=== PATIENT | male | born 1965 | race Caucasian/White ===

== ENCOUNTER 2024-10-13 11:35 | Outpatient (CLI) | payer BC, SELFPAY ==
--- OUTSIDE RECORDS SUMMARY | 2024-10-13 13:08 | XMS_ITS | Encounter Summary ---
Author Organization [facility] Address [address] [facility] [place] [address] Phone Care Team Providers Care Racing Driver Name Role Phone Rissa Clark MD Primary Care Provider Nuha Marroquin APRN, HOT METAL CHARGER Unavailable Reason for Visit * Reason Comments Medication Refill Encounter Details Date Type Department Care Team (Late st Contact Info) Description 04/29/2024 Refill [facility] - Family Medicine - Normal [address] [facility] [address] [place], [place] [id number] Rissa Clark MD [address] [facility] [address] [place] [address] Medication Refill Social History Tobacco Use Types Packs/Day Years Used Date Smoking Tobacco: Never Smokeless Tobacco: Never Alcohol Use Standard Drinks/Week Comments Yes 2 (1 standard drink = 0.6 oz pur e alcohol) AUDIT-C Answer Date Recorded Frequency of Alcohol Consumption 2-3 times a wee k 11/25/2018 Average Number of Drinks 1 or 2 019 Frequency of Binge Drinking Not on file 11/05 PHQ-2 Answer Date Recorded Total Score - Questions 1-9 0 10/0 10/2020 Education Answer Date Recorded What is the highest level of school you have completed or the highest degree you have received? Bachelor's degree (e.g., BA, AB, BS) 02/05/2020 Sexually Active Control Partners Comments Not Currently Surgical Female Sex and Gender Information Value Date Recorded Sex Assigned at Male 04/16/2023 8:27 AM DRAWING BOX TENDER Legal Sex Male 3:11 AM DRAWING BOX TENDER Gender Identity Male 04/16/2023 8:27 AM DRAWING BOX TENDER Sexual Orientation Straight 04/16/2023 8: 27 AM DRAWING BOX TENDER documented as of this encounter Miscellaneous Notes * Telephone Encounter - Rosa Borja RN - 05/01/2024 9:50 AM CST Refill denied. Office has tried to contact patient with no response. Patient is aware that visit isneeded as [facility] message was read back in February ING BOX TENDER documented in this encounter Plan of Treatment Not on file documented as of this encounter Visit Diagnoses Not on filedocumented in this encounter Additional Health Concerns Assessment Noted Time PHQ-9 Depression Total Score: 0 02/10/20 21 8:00 AM CDT documented as of this encounter Care Teams Racing Driver Relationship Specialty Start Date End Date Rissa Clark MD [address] [place] [address] PCP - General Family Medicine 07/14/16 Nuha Marroquin APRN, HOT METAL CHARGER [address] [place] [address] Nurse Practitioner Advanced Practice Nurse 07/10/24 documented as of this encounter
--- OUTSIDE RECORDS SUMMARY | 2024-10-13 13:08 | XMS_ITS | Clinical Summary ---
Author Organization [facility] Address [address] [place] [address] Care Team Providers Care Reach Lift Truck Driver Name Role Phone Rissa Clark MD Primary Care Provider Source Comments [facility],non-owned Affiliates and Associated Physician Practices is amultiple site organization consisting of ambulatory clinics and hospital sitesin [place] and [place]. This disclosure is being madepursuant to the Care Everywhere program and may not contain all information available regarding this patient. Last updated 18.[facility] Allergies No known active allergies Medications * Be aware that medications may not be up to date on this document. Alwaysverify current medications with the patient. cyanocobalamin (Vitamin B-12) 250 MCG TABS Take 4,000 (four thousand) Half Tablet by mouth once daily Active fenofibrate (Lofibra) 160 MG tablet Take 1 (one) tablet by mouth once daily Active lovastatin (Mevacor) 20 MG tablet Take 1 (one) tablet by mouth daily with dinner Active tadalafil (Cialis) 20 MG tablet Take 1 (one) tablet by mouth once as needed FOR ERECTILE DYSFUNCTION Active Active Problems No known active problems Social History Tobacco Use Types Packs/Day Years Used Date Smoking Tobacco: Never Smokeless Tobacco: Never Tobacco Cessation:Counseling Given: Not Answered Sex and Gender Information Value Date Recorded Sex Assigned at Not on file Legal Sex Male 3:48 PM CDT Gender Identity Not on file Sexual Orientation Not on file Plan of Treatment Upcoming Encounters Date Type Department Care Team (Late st Contact Info) Description 11/26/2024 3:00 PM CDT Office Visit [facility] - General Dermatology [address] [place] [address] [place] [address] Ellie Recinos DO [address] [place] [address] Health Maintenance Due Date Last Done Comments COLOGUARD (AGES 45-75) - COL ON CA SCREENING 1965 CT COLONOGRAPHY - COLON CA SCREENING 1965 FIT - COLON CA SCREENING 1963 FLEX SIG - COLON CA SCREENING 1963 HIV SCREENING 11/27/1978 DTAP/TDAP/TD VACCINES (1 - Tdap) 11/27/1982 PNEUMOCOCCAL VACCINE 50+ (1 of 1 - PCV) 11/27/2013 ZOSTER VACCINE (1 of 2) 11/27/2013 COVID-19 VACCINE (2 - 2023-2 5 season) 2024 05/27/2021 COLON MONITORING 03/19/2024 03/19/2014 COLONOSCOPY - COLON CA SCREENING 03/19/2024 03/19/20 14 Colorectal Cancer Screening 03/19/2024 DEPRESSION SCREENING 05/07/2024 INFLUENZA VACCINE (Season Ended) 2025 Respiratory Syncytial Virus (RSV) Vaccine Pt: or over 60 yrs (1 - 1-dose 75+ series) 11/27/2038 HEPATITIS C SCREENING Completed 02/14/2023 HEPATITIS B VACCINE Aged Out No longe r eligible based on patient's age to complete this topic HIB VACCINE Aged Out No longer eligi ble based on patient's age to complete this topic HPV VACCINE Aged Out No longer eligi ble based on patient's age to complete this topic MENINGOCOCCAL (Group B) VACC INE SHARED DECISION-MAKING Aged Out No longer eligibl e based on patient's age to complete this topic MENINGOCOCCAL GROUPS A/C/Y/W VACCINE Aged Out No longer eligible b ased on patient's age to complete this topic Insurance ANTHJASMIN Care Teams Reach Lift Truck Driver Relationship Specialty Start Date End Date Rissa Clark MD [address] [facility] [address] [place] [phone] PCP - General Family Medicine 11/27/23
--- OUTSIDE RECORDS SUMMARY | 2024-10-13 13:08 | XMS_ITS | Continuity of Care Document ---
Author Organization [facility], [facility] Address [address] [place] [phone] Phone Care Team Providers Care Passenger Car Upholsterer Apprentice Name Role Phone Delano Arias OD Unavailable Unavailable Allergies, Adverse Reactions, Alerts Substance Reaction Status Criticality No Known allergies Procedures Procedure Date EYE EXAM, NEW PATIENT VISION REFRACTION UPDATE Vision svcs frames purchases Single Vision Lens DRILL RIMLESS [place] Advance Directives Directive Yes / No Effective Date File Name No Information Encounters Encounter Description Practice Location Reason(s) For Visit Diagnoses Date Provider Providers Copied on Encounter [facility], [facility], [address] [place] [address], [id number] , tel:[phone] [facility] blurry vision at near and computer. (chief complaint) Astigmatism, unspecifiedPresbyopia [address] [place] [address], [id number] , [place]. tel:[phone] Family History Family Member Type Diagnosis Age At Onset No Information Payers Payer name Insurance type Covered republican ID Authoriza tikelsi(s) [facility] CI [id number] Social History Type Description Quantity Date Captured Comments Alcohol Use Details Unknown Caffeine Use Details Unknown Tobacco Use Status No Information Smoking Status Never smoker Non-Smoking Tobacco Use Details : No Details Available : No Details Available Sex Male Chief Complaint And Reason For Visit From encounter dated '05/09/2011 15:45'. blurry vision at near and computer. (chief complaint) Reason For Referral Reason For Referral No Information History Of Present Illness Encounter Date Complaint History Of Prese nt Illness No Information Functional Status Date Functional Assessmen t No Information Instructions Date Instruction Additional Ishar leesa - Return in 1 year w fernando [facility] for Ref T & D. Related to Astigmatism, unspecified Astigmatism, unspeci fied . Condition: established, stable. Presbyopia . Condition: established, stable. - Pt is becoming presbyopic. explained to pt. Also found some dist rx, pt has sl astigmatism. Gls rx optional or can stay c OTC readers. Eyes look healthy, no glaucoma, no cataracts and no mac degen. Pt doing well. Related to Astigmatism, unspecified Assessments Type Assessment Date No Information Patient Care Teams Name Effective Dates (start - stop) Status Members No Information
--- OUTSIDE RECORDS SUMMARY | 2024-10-13 13:09 | XMS_ITS | Encounter Summary ---
Author Organization [facility] Address [address] [facility] [place] [address] Phone Care Team Providers Care Agriculture Worker Name Role Phone Rissa Clark MD Primary Care Provider Nuha Marroquin APRN, LOCKSTITCH LINING MAKER Unavailable Reason for Visit * Reason Comments Medication Refill Encounter Details Date Type Department Care Team (Late st Contact Info) Description 01/13/2020 Refill [facility] - Family Medicine - Normal [address] [facility] [address] [place], [place] [phone] Rissa Clark MD [address] [facility] [address] [place] [address] Medication Refill Social History Tobacco Use Types Packs/Day Years Used Date Smoking Tobacco: Never Smokeless Tobacco: Never Alcohol Use Standard Drinks/Week Comments Yes 1 (1 standard drink = 0.6 oz pur e alcohol) AUDIT-C Answer Date Recorded Frequency of Alcohol Consumption 2-3 times a wee k 11/25/2018 Average Number of Drinks 1 or 2 019 Frequency of Binge Drinking Not on file 11/05 PHQ-2 Answer Date Recorded PHQ-2 Score 6 02/03/2019 Sexually Active Control Partners Comments Not Currently Female Sex and Gender Information Value Date Recorded Sex Assigned at Male 04/16/2023 8:27 AM DANCE STUDIO MANAGER Legal Sex Male 3:11 AM DANCE STUDIO MANAGER Gender Identity Male 04/16/2023 8:27 AM DANCE STUDIO MANAGER Sexual Orientation Straight 04/16/2023 8: 27 AM DANCE STUDIO MANAGER documented as of this encounter Miscellaneous Notes * Telephone Encounter - Ayanna Aquino - 01/13/2020 8:34 AM CDT Medication(s) refilled and signed per [facility] Medication Refill Standing Order forPediatric and Adult Patients documented in this encounter Plan of Treatment Not on file documented as of this encounter Visit Diagnoses Diagnosis Mixed hyperlipidemia documented in this encounter Additional Health Concerns Infection Onset Date Last Indicated Resolved Time COVID - 19 Confirmed 11/30/2021 11/30/2021 022 12:16 AM CDT Assessment Noted Time PHQ-9 Depression Total Score: 6 02/04/20 19 10:00 AM CDT documented as of this encounter Care Teams Agriculture Worker Relationship Specialty Start Date End Date Rissa Clark MD [address] [place] [address] PCP - General Family Medicine 07/14/16 Nuha Marroquin APRN, DIGNA [address] [place] [address] Nurse Practitioner Advanced Practice Nurse 07/10/24 documented as of this encounter
--- OUTSIDE RECORDS SUMMARY | 2024-10-13 13:09 | XMS_ITS | Encounter Summary ---
Author Organization [facility] Address [address] [facility] [place] [address] Phone Care Team Providers Care Multicultural Manager Name Role Phone Rissa Clark MD Primary Care Provider [phone] Nuha Marroquin APRN, MASS SPEC Unavailable Reason for Visit * Reason Comments Medication Refill Encounter Details Date Type Department Care Team (Late st Contact Info) Description 02/05/2022 Refill [facility] - Family Medicine - Normal [address] [facility] [address] [place], [place] [phone] Rissa Clark MD [address] [facility] [address] [place] [address] Medication Refill Social History Tobacco Use Types [...] Sex Assigned at Male 04/16/2023 8:27 AM LEARNING SUPPORT AIDE Legal Sex Male 3:11 AM LEARNING SUPPORT AIDE Gender Identity Male 04/16/2023 8:27 AM LEARNING SUPPORT AIDE Sexual Orientation Straight 04/16/2023 8: 27 AM LEARNING SUPPORT AIDE documented as of this encounter Miscellaneous Notes * Telephone Encounter - Rissa Clark MD - 02/06/2022 10:41 PM CDT Approved. Will add refills at upcoming appt * Telephone Encounter - Keith Rossi RN - 02/06/2022 11:07 AM CDT Per nursing clinical judgement, provider to review and approve the medication(s) order(s) if appropriate. Requested Prescriptions Pending Prescriptions Disp Refills lovastatin (MEVACOR) 20 MG Tablet [Pharmacy Med Name: LOVASTATIN 20 MG TABLET] 90 Tablet 0 Sig: TAKE 1 TABLET BY MOUTH EVERY DAY IN THE EVENING Hmg CoA Reductase Inhibitors Protocol Passed - 02/05/2022 10:29 AM Passed - Visit with relevant provider in past 12 months or upcoming 90 days Recent Visits Date Type Provider Dept 02/09/21 Office Visit Rissa Clark MD [facility] Normal [place] Showing recent visits within past 365 days and meeting all other requirements Future Appointments Date Type Provider Dept 02/13/22 Appointment Rissa Clark MD [facility] Normal [place] Show[place] future appointments within next 90 days and meeting all other requirements Passed - Lipid panel in past 12 months LDL Date Value Ref Range Status 02/09/2021 183 (H) <130 mg/dL Final HDL CHOLESTEROL Date Value Ref Range Status 02/09/2021 43 >40 mg/dL Final CHOLESTEROL Date Value Ref Range Status 02/09/2021 272 (H) <200 mg/dL Final TRIGLYCERIDES Date Value Ref Range Status 02/09/2021 229 (H) <150 mg/dL Final VLDL Date Value Ref Range Status 02/09/2021 46 10 - 50 mg/dL Final CHOL/HDL RATIO Date Value Ref Range Status 02/09/2021 6.3 (H) 0.0 - 4.4 Final NON-HDL CHOLESTEROL Date Value Ref Range Status 02/09/2021 229 (H) <130 mg/dL Final documented in this encounter Plan of Treatment Not on file documented as of this encounter Visit Diagnoses Not on filedocumented in this encounter Additional Health Concerns Assessment Noted Time PHQ-9 Depression Total Score: 0 02/10/20 21 8:00 AM CDT documented as of this encounter Care Teams Multicultural Manager Relationship Specialty Start Date End Date Rissa Clark MD [address] [place] [address] PCP - General Family Medicine 07/14/16 Nuha Marroquin APRN, MASS SPEC [address] [place] [address] Nurse Practitioner Advanced Practice Nurse 07/10/24 documented as of this encounter
--- OUTSIDE RECORDS SUMMARY | 2024-10-13 13:09 | XMS_ITS | Encounter Summary ---
Author Organization [facility] Address [address] [facility] [place] [address] Phone Care Team Providers Care Product Development Manager Name Role Phone Rissa Clark MD Primary Care Provider Nuha Marroquin APRN, SAMPLE CUTTER Unavailable Reason for Visit * Reason Comments Medication Refill Encounter Details Date Type Department Care Team (Late st Contact Info) Description 04/30/2024 Refill [facility] - Family Medicine - Normal [address] [facility] [address] [place], [place] [phone] Rissa Clark MD [address] [facility] [address] [place] [address] Medication Refill Social History Tobacco Use Types [...] Sex Assigned at Male 04/16/2023 8:27 AM SUBSCRIPTION CREW LEADER Legal Sex Male 3:11 AM SUBSCRIPTION CREW LEADER Gender Identity Male 04/16/2023 8:27 AM SUBSCRIPTION CREW LEADER Sexual Orientation Straight 04/16/2023 8: 27 AM SUBSCRIPTION CREW LEADER documented as of this encounter Miscellaneous Notes * Telephone Encounter - Rosa Borja RN - 05/01/2024 3:03 PM CST Refill denied. Patient has been notified that appointment is needed with no response CRIPTION CREW LEADER documented in this encounter Plan of Treatment Not on file documented as of this encounter Visit Diagnoses Diagnosis Mixed hyperlipidemia documented in this encounter Additional Health Concerns Assessment Noted Time PHQ-9 Depression Total Score: 0 02/10/20 21 8:00 AM CDT documented as of this encounter Care Teams Product Development Manager Relationship Specialty Start Date End Date Rissa Clark MD [address] [place] [address] PCP - General Family Medicine 07/14/16 Nuha Marroquin APRN, SAMPLE CUTTER [address] [place] [address] Nurse Practitioner Advanced Practice Nurse 07/10/24 documented as of this encounter
--- OUTSIDE RECORDS SUMMARY | 2024-10-13 13:09 | XMS_ITS | Clinical Summary ---
Author Organization [facility] Address [address] [place] [address] Phone Care Team Providers Care Technical Maintenance Technician Name Role Phone Rissa Clark MD Primary Care Provider [phone] Nuha Marroquin APRN, [employer] POL[employer]ER Unavailable [phone] Allergies No known active allergies Medications Cyanocobalamin (VITAMIN B 12 PO) Take 1,000 mg by mouth every other day. Active fenofibrate 160 MG TabletIndications:M ixed hyperlipidemia Take 1 Tablet by mouth daily. 90 Tablet 4 5 Active lovastatin (MEVACOR) 40 MG TabletIndications:M ixed hyperlipidemia Take 0.5 Tablets by mouth every evening. 90 Tablet 4 5 Active tadalafil (CIALIS) 20 MG Tablet Take 1 Tablet by mouth as needed for Erectile Dysfunction. 10 Tablet 11 5 Active sodium sulfate-potassium sulfate-magnesium sulf (SUPREP) 17.5-3.13-1.6 GM/177ML Solution 5 Active losartan (COZAAR) 50 MG Tablet Take 1 Tablet by mouth daily. 90 Tablet 3 5 Active Active Problems Problem Noted Date Diagnosed Date Primary hypertension 06/12/2024 Hyperlipidemia Encounters Date Type Department Care Team Description 08/22/2024 MyChart RX Renewal [facility] - Family Medicine - Normal [address] [place] [address] Nuha Marroquin APRN, DIGNA Medication Renewal Declined from Last 3 Months Immunizations Immunization Administration Dates Next Due Covid-19, Mrna, Lnp-s, Pf, 30 Mcg/0.3 Ml Dose (P fizer) 05/27/2021 TDAP Vaccine 02/05/2020,03/15/2009 Family History Medical History Relation Name Comments Cancer Father Jean prostate High Cholesterol Father [place] Cancer Maternal Grandfather Omer Congestive Heart Failure Paternal Grandfather Lane Heart Attack Paternal Grandfather Lane Relation Name Status Comments Father Jean Alive Maternal Grandfather [place] Mother Alive Paternal Grandfather Lane Social History Tobacco Use Types Packs/Day Years Used Date Smoking Tobacco: Never Smokeless Tobacco: Never Tobacco Cessation:Counseling Given: No Alcohol Use Standard Drinks/Week Comments Yes 2 (1 standard drink = 0.6 oz pur e alcohol) [facility] Utilities Answer Date Recorded In the past 12 months has [employer], gas, oil, or water [employer] threatened to shut off services in your home? No 06/11/2024 Social Connection and Isolation Panel Answer Date Recorded In a typical week, how many times do you talk on the phone with family, friends, or neighbors? More than three times a week 06/11/2024 How often do you get togethe r with friends or relatives? More than three times a week 06/11/2024 How often do you attend [facility] or adventism services? More than 4 times per year 06/11/2024 Do you belong to any clubs o r organizations such as latter day groups, unions, fraternal or athletic groups, or school groups? No 06/11/2024 How often do you attend meet ings of the clubs or organizations you belong to? Never 06/11/2024 Are you , , di vorced, , never , or living with a partner? 06/11/2024 AUDIT-C Answer Date Recorded Q1: How often do you have a drink containing alc ohol? 2-3 times a week 06/11/2024 Q2: How many drinks containi ng alcohol do you have on a typical day when you are drinking? 1 or 2 06/11/2024 Q3: How often do you have si x or more drinks on one occasion? Never 06/11/2024 Overall Financial Resource Strain (CARDIA) Answe r Date Recorded How hard is it for you to pa y for the very basics like food, housing, medical care, and heating? Not hard at all 06/11/2024 PHQ-2 Answer Date Recorded Total Score - Questions 1-9 0 10/0 10/2020 [facility] - Occupational Stress Questionnaire Answer Date Recorded Do you feel stress - tense, restless, nervous, or anxious, or unable to sleep at night because your mind is troubled all the time - these days? Only a little 06/11/2024 Exercise Vital Sign Answer Date Recorde d On average, how many days pe r week do you engage in moderate to strenuous exercise (like a brisk walk)? 3 days 06/11/2024 On average, how many minutes do you engage in exercise at this level? 30 min 06/11/2024 Hunger Vital Sign Answer Date Recorded Within the past 12 months, y ou worried that your food would run out before you got the money to buy more. Never true 06/11/19 25 Within the past 12 months, t he food you bought just didn't last and you didn't have money to get more. Never true 06/11/2024 PRAPARE - Transportation Answer Date Re corded In the past 12 months, has l ack of transportation kept you from medical appointments or from getting medications? No 09/2024 In the past 12 months, has l ack of transportation kept you from meetings, work, or from getting things needed for daily living? No 06/11/2024 Housing Stability Vital Sign Answer Morales e Recorded In the last 12 months, was t here a time when you were not able to pay the mortgage or rent on time? No 06/11/2024 In the past 12 months, how m any times have you moved where you were living? 1 06/11/2024 At any time in the past 12 m [facility], were you homeless or living in a halfway (including now)? No 06/11/2024 Education Answer Date Recorded What is the highest level of school you have completed or the highest degree you have received? Bachelor's degree (e.g., BA, AB, BS) 02/05/2020 Sexually Active Control Partners Comments Not Currently Surgical Female Sex and Gender Information Value Date Recorded Sex Assigned at Male 04/16/2023 8:27 AM LOG RAFTER Legal Sex Male 3:11 AM LOG RAFTER Gender Identity Male 04/16/2023 8:27 AM LOG RAFTER Sexual Orientation Straight 04/16/2023 8: 27 AM LOG RAFTER Last Filed Vital Signs Vital Sign Reading Time Taken Comments Blood Pressure 136/84 07/03/2024 8:15 AM LOG RAFTER Pulse 59 07/03/2024 8:15 AM LOG RAFTER Temperature 36.4 C (97.6 F) 07/03/2024 8:15 AM LOG RAFTER Respiratory Rate 16 07/03/2024 8:15 AM LOG RAFTER Oxygen Saturation 99% 07/03/2024 8:15 AM LOG RAFTER Inhaled Oxygen Concentration - - Weight 94.8 kg (209 lb) 07/03/2024 8:15 AM LOG RAFTER Height 188 cm (6' 2) 07/03/2024 8:15 AM LOG RAFTER Body Mass Index 26.83 07/03/2024 8:15 AM LOG RAFTER Plan of Treatment Health Maintenance Due Date Last Done Comments Cologuard 11/27/2008 Immunochemical Fecal Occult Blood 11/27/2008 Pneumococcal Immunization (50+ years) (1 of 1 - PCV) 11/27/2013 Zoster Immunization (1 of 2) 11/27/2013 SARS-COV-2 Immunization ( season) 2024 05/27/2021, 10/08/2020, 09/17/2020 Colonoscopy 03/19/2024 03/19/2014 Colorectal Cancer Screening 03/19/2024 Influenza Immunization (Season Ended) 2025 Td Immunization Every 10 Years (Adults With 1 Tdap) 02/04/2030 02/05/2020, 03/15/2009 Respiratory Syncytial Virus (RSV) Immunization (Adult) (1 - 1-dose 75+ series) 11/27/2038 Hepatitis C Virus (HCV) Screening Completed 02/14/2023 PSA Discussion Completed 07/03/2024, 02/04, 02/13/2022, Additional history exists Hepatitis B Immunization Discontinued Human Papillomavirus (HPV) Immunization Aged Out No longer eligible based on patient's age to complete this topic Meningococcal Immunization (ACWY) Aged Out No longer eligible based on patient's age to complete this topic Rotavirus Immunization Aged Out No lo nger eligible based on patient's age to complete this topic Procedures Procedure Name Priority Date/Time Associated Diagnosis Comments PSA SCREEN Routine 07/03/2024 7:17 AM LOG RAFTER Screening PSA (prostate specific antigen) HEPATITIS C ANTIBODY Routine 02/14/2023 7:55 AM CDT Need for hepatitis C screening test [place] COLONOSCOPY FLX DX W/COLLJ SPEC WHEN PFRMD Routine 03/19/2014 from Last 3 Months or Most Recently Relevant to Health Maintenance Results * PSA SCREEN (07/03/2024 7:17 AM LOG RAFTER) PSA SCREEN, TOTAL 1.28 <4.00 ng/mL 07/03/2024 11:39 AM LOG RAFTER [facility] Blood Venipuncture / Unknown 07/03/2024 7:17 AM LOG RAFTER 07/03/2024 7:17 AM LOG RAFTER Narrative [facility] - 07/03/2024 11:39 AM LOG RAFTER The ALINITY Total PSA assay is a Chemiluminescent Microparticle Immunoassay (CMIA) for the quantitative determination of total PSA (both free PSA and PSA complexed to [id number]) in human serum. Total PSA values obtained with different assay methods, including Ramires PSA assays, cannot be used interchangeably. Nuha Marroquin APRN, CNP CHEMISTRY ORDERABLES Final Result [facility] [address] [place] [address], * HEPATITIS C ANTIBODY (02/14/2023 7:55 AM CDT) hepatitis C antibody 0.12 <1 S/CO [facility] [id number] B 02/14/2023 3:24 PM CDT [facility] Comment: Signal/Cutoff ratio < 0.79 is Nondetected Signal/Cutoff ratio 0.80-0.99 is Grayzone Signal/Cutoff ratio > 0.99 is Detected Supplemental assays are recommended if signal/cutoff ratio is >/=1.00. Signal/cutoff ratio result >/= 5.00 is 97% predictive of positivity for recombinant immunoblot assay (RIBA) and will be reported to the [place] Department of Public Health as required. Blood Venipuncture / Unknown 02/14/2023 7:55 AM CDT 02/14/2023 7:55 AM CDT us Rissa Clark MD CHEMISTRY ORDERABLES Final Result [facility] [address] [place] [address], * COLONOSCOPY,DIAGNOSTIC (03/19/2014) Cliff Guallpa MD [place] - SURGERY Final Result from Last 3 Months or Most Recently Relevant to Health Maintenance [place] [address] [place] [address] Care Teams Technical Maintenance Technician Relationship Specialty Start Date End Date Rissa Clark MD [address] [place], [place] [id number] PCP - General Family Medicine 07/14/16 Nuha Marroquin, [employer], [employer]ISHER [address] [place] [address] Nurse Practitioner Advanced Practice Nurse 07/10/24
[2024-10-13 13:25] LABS: Basophils Absolute Auto 0.1 K/mm3 (0.0-0.1); Basophils Percent Auto 0.8 % (0.2-1.2); Eosinophils Absolute Auto 0.1 K/mm3 (0-0.3); Eosinophils Percent Auto 0.8 % (0-4.4); Hematocrit 44.8 % (42.0-52.0); Hemoglobin 14.8 g/dL (14.0-18.0); Immature Granulocyte Absolute 0.02 K/mm3 (0.00-0.031); Immature Granulocyte Percent A 0.3 % (0-0.5); Lymphocytes Absolute Auto 1.81 K/mm3 (0.9-3.2); Lymphocytes Percent Auto 22.9 % (18.3-44.2); Mean Corpuscular Hemoglobin 29.8 pg (26-34); Mean Corpuscular Volume 90.3 fl (80-100); Mean Platelet Volume 10.4 fl (7.4-10.4); Monocytes Absolute Auto 0.4 K/mm3 (0.1-0.6); Monocytes Percent Auto 5.1 % (2.6-8.5); Neutrophils Absolute Auto 5.6 K/mm3 (1.3-6.7); Neutrophils Percent Auto 70.1 % (45.5-73.1); Platelet Count Result 248 k/mm3 (150-375); Red Blood Count 4.96 M/mm3 (4.6-6.20); Red Cell Distribution Width 12.6 % (11.5-14.5); White Blood Count 7.9 K/mm3 (4.5-10.0)
[2024-10-13 16:35] LABS: Alanine Aminotransferase 18 U/L (6-50); Albumin Level 4.6 g/dL (3.5-5.1); Alkaline Phosphatase 40 U/L (38-126); Anion Gap 8 mmol/L (4-12); Aspartate Amino Transferase 40 U/L (17-59); Bilirubin,Total 0.9 mg/dL (0.2-1.3); Blood Urea Nitrogen 20 mg/dL (9-20); Calcium 9.7 mg/dL (8.4-10.2); Carbon Dioxide 27 mmol/L (22-30); Chloride 103 mmol/L (98-107); Cholesterol 162 mg/dL (0-200); Estimated Glomerular Filt Rate > 60; Glucose 99 mg/dL (65-110); HDL Direct 59 mg/dL; Potassium 4.1 mmol/L (3.4-5.0); Sodium 138 mmol/L (137-145); Total Protein 7.6 g/dL (6.3-8.2); Triglycerides 109 mg/dL (<150)
[2024-10-13 16:50] LABS: LDL Cholesterol Direct 65 mg/dL
[2024-10-13 17:09] LABS: Thyroid Stimulating Hormone 0.755 uIU/mL (0.465-4.680)
== END 2024-10-13 11:36 | disposition home or self-care (01) ==
LOC: ANHGOSHLAB 11:36
PROVIDERS: PCP Family Medicine; Visit Provider Family Medicine
DX: Z00.00 Encounter for general adult medical examination without abnormal findings (principal); E78.2 Mixed hyperlipidemia; Z80.42 Family history of malignant neoplasm of prostate; Z12.5 Encounter for screening for malignant neoplasm of prostate
CPT/HCPCS: 36415; 80053; 80061; 82607; 84153; 84443; 85025; G0103